=== PATIENT | female | born 1990 | race Caucasian/White ===

== ENCOUNTER 2019-10-14 19:50 | Day surgery (SDC) | payer OTHER, SELFPAY ==
[2019-10-14 20:20] VITALS: BMI 31.8
[2019-10-14 21:43] LABS: Bilirubin Negative (Negative); Blood, Urine Negative (Negative); Clarity Clear (Clear); Glucose, Urine (Dipstick) Normal (Negative); Leukocyte Negative Leu/uL (Negative); Nitrite Negative (Negative); Protein, Urine (Dipstick) Negative (Neg-Trace); RBC/HPF 0-3 HPF (0-3); Renal Epithelial 0-3 HPF (None Seen); Squamous Epithelial 0-3 HPF (0-3); Urobilinogen Normal mg/dL (Less than 2); WBC/HPF 0-3 HPF (0-3)
[2019-10-14 21:51] LABS: Bacteria/HPF Rare-Few HPF (None Seen)
[2019-10-14 21:52] LABS: Urine Culture Reflex No No
[2019-10-14] MEDS ORDERED: hydrALAZINE 20 MG/ML VIAL SLOW IVP PRN (23:39)
--- NOTE | 2019-10-15 08:45 | PRG ---
DATE OF SERVICE: 10/14/2019 PRIMARY OB: Dr. Jassi Peoples. CHIEF COMPLAINT: Contractions. HISTORY OF PRESENT ILLNESS: The patient is a 29-year-old G3, P2 female with an intrauterine of 31 weeks and 5 days presenting to Labor and Delivery with complaints of uterine contractions. She reports that she has been having contractions at one point today about every 5 minutes and at the recommendation of her doctor came in for evaluation. Of note, up to this point, the patient has had been seen by her doctor and has had a positive fibronectin as of late last week and this morning at the doctor's office was noted to have a cervical length of 3 cm and a closed cervix on his exam. On arrival, the patient reports that her contractions have been spacing some and probably feel about every 10 minutes and not as intense. The patient denies that she has had any illness, fever, fall, cough, headache, chest pain, shortness of breath, nausea, vomiting, diarrhea, constipation, hip problems, knee problems, muscle weakness, urinary urgency or frequency, vaginal bleeding or leakage of fluid. The patient has a history of two deliveries that she reports were term or late . PAST MEDICAL HISTORY: Chronic ear infections. PAST SURGICAL HISTORY: [place] tooth extraction, adenoids removed, multiple ear tubes placed, breast augmentation. ALLERGIES: NO KNOWN DRUG ALLERGIES. MEDICATIONS: vitamins and hydroxyzine. OB LABS: Unavailable at time of dictation. SOCIAL HISTORY: Denies drug, alcohol, tobacco use. REVIEW OF SYSTEMS: Per HPI. PHYSICAL EXAMINATION: VITAL SIGNS: Blood pressure 136/82, heart rate of 86, respiratory rate of 18, saturating 98% on room air, temperature 98.2. GENERAL: She appears to be in no acute distress. She is alert, oriented, cooperative, and pleasant to interact with. HEAD: Normocephalic, atraumatic. LUNGS: Clear to auscultation bilaterally. HEART: Regular rate and rhythm. ABDOMEN: Gravid, soft, nontender. EXTREMITIES: Nontender, nonedematous. GENITALIA: On cervical exam per nursing staff, she is closed, thick and high, which is consistent with the exam earlier in the day by her primary doctor. DIAGNOSTIC DATA: heart tracing shows the fetus with a baseline in the 140s with moderate long-term variability, positive 15 x 15 accelerations, no decelerations. Tocometer shows occasional contractions with some irritability, difficult to comment on spacing. Urinalysis was performed, which was negative for ketones, nitrites, leukocyte esterase, squamous cells, bacteria, white blood cells. ASSESSMENT AND PLAN: The patient is a 29-year-old female with an intrauterine at 31 weeks and 5 days, having contractions, but no evidence of labor. Urinalysis was performed with no evidence of infection. She does have a VPIII pending in her doctor's office and was not repeated here in the hospital. The patient had a normal cervical length in the morning at her doctor's office and was not repeated this evening given the mild nature of the patient's symptoms and the closed long cervix on digital exam per nursing staff. The patient was given reassurance. Her primary provider has been updated. The patient was sent home with labor precautions. Job ID: [id number]
== END 2019-10-14 22:05 | disposition home or self-care (01) ==
LOC: L&D/OP 19:50
PROVIDERS: ATTEND Obstetrics & Gynecology
DX: O47.03 False labor before 37 completed weeks of gestation, third trimester (principal); Z3A.31 31 weeks gestation of pregnancy
CPT/HCPCS: 59025; 81001; 99283